=== PATIENT | female | born 1965 ===

== ENCOUNTER 2025-02-20 13:15 | Outpatient (AMB) | payer OTHER, SELFPAY ==
--- NOTE | 2025-02-20 13:14 | A.OFFPC_ITS ---
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: No Accompanied by: Self / Same As Patient Allergies NSAIDS (Non-Steroidal Anti-Inflamma Allergy (Mild, Verified 02/20/25 13:41) Anaphylaxis linaclotide (From Linzess) Adverse Reaction (Verified 02/20/25 13:41) Diarrhea Medication List - Last Reconciled 02/20/25 by Rocio Trujillo PA-C albuterol-budesonide 90-80 mcg/actuation 2 inhalations inhalation DAILY PRN atorvastatin (Lipitor) 10 mg PO BEDTIME shnxkmtcyp-nrkzfzad-dcggwjpncz 160-9-4.8 mcg/actuation (Breztri Aerosphere) 2 inhalations inhalation BID cetirizine (Zyrtec) 10 mg PO DAILY PRN cyclobenzaprine 10 mg PO BEDTIME diclofenac sodium 1% 2 grams topical QID duloxetine 60 mg PO DAILY ergocalciferol (vitamin D2) 1,250 mcg PO QWEEK esomeprazole magnesium (Nexium) 20 mg PO DAILY fluticasone propionate 44 mcg/actuation 2 puffs inhalation BID meloxicam 15 mg PO DAILY nitroglycerin 0.4 mg sublingual Q5M PRN sumatriptan succinate take 1 tab at onset of headache; if no relief may repeat 1 tab after at least 2 hrs; max = 4 tabs/24 hr PO Tobacco use date assessed: 02/20/25 Dental Screening Dental Screen Date: 02/20/25 Did you have a dental visit in the last 12 months?: Yes Did you have a dental problem in the last 6 months where you did not have access to dental care?: No Was dental information given to patient?: Patient has dentist HPI HPI Comments History of Present Illness Details History of Present Illness The patient is a 59 year old individual presenting for a new patient establish [facility] visit. The patient reports a past medical history of hypertension and hyperlipidemia/hypercholesterolemia, though is not currently taking any medications for these conditions. Other reported conditions include GERD, depression, anxiety, asthma, allergic rhinitis, anemia, vitamin B12 deficiency, vitamin-D deficiency, osteoarthritis, migraine headaches, intermittent chest pain, bowel disease, a history of UTIs, and sinusitis. The patient has a significant surgical history, including a lumbar fusion performed in [place]. Associated back conditions include lumbar spondylosis, a prolapsed lumbar intervertebral disc, and spinal stenosis. The patient also reports a history of left hip issues and an unspecified uterine condition. The patient reports she was on multiple medications when she was in [place] although she has not been on any medications since she has arrived and move back to [place]. The medications include Nexium 20 mg daily, vitamin-D 2 1250 mcg weekly, duloxetine 50 mg daily, 3 different inhalers for her asthma, nitroglycerin for under her tongue if she has any chest pain, atorvastatin 10 mg at bedtime, sumatriptan 50 mg daily for her migraine headaches, meloxicam for her chronic back pain and muscle aches, fluconazole nasal spray, cyclobenzaprine muscle relaxant for chronic back pain, diclofenac 1% gel, and Zyrtec. She reports she has not had any of these medications and will need a refill on all of these medications. She was on sertraline and pregabalin along with tramadol although is no longer on these medications and is not requesting a refill on these medications at this time. The patient has a family history of premature coronary artery disease. The patient has an upcoming appointment with a therapist and will also see a psychiatrist. Patient would like a referral to neurologist for her history of transient cerebral ischemia in September of 2014 and for her migraine headaches and her vertigo. Patient would like a referral for a mammogram and a bone scan. Patient would also like a referral for a colonoscopy. Patient would like a referral for cervical cancer screening at [facility]. She reports for her chronic back pain she would like a referral for Orthopedics as her prior surgeon/orthopedic doctor unfortunately . Patient would also like physical therapy referral for her vertigo. Social History - The patient recently relocated from [facility]. - The patient has an appointment sched ed with a therapist and also plans to see a psychiatrist. COUNTS INCLUDE 234 BEDS AT THE [facility] Medical History (Updated 02/20/25 @ 16:17 by Rocio Trujillo PA-C) Healthcare maintenance Menopause Transient cerebral ischemia Lumbar post-laminectomy syndrome Chronic constipation Chronic hip pain, bilateral Vitamin D deficiency Vitamin B12 deficiency Anemia Allergic rhinitis Uterine leiomyoma Osteoarthritis History of sinusitis Hyperlipidemia Vertigo Anxiety and depression History of chronic back pain Spinal stenosis Asthma GERD (gastroesophageal reflux disease) Annual physical exam BPPV (benign paroxysmal positional vertigo) Left thyroid nodule Dysuria History of spinal stenosis Transient ischemic attack Migraine headache Cervical cancer screening Surgical History (Updated 02/20/25 @ 16:14 by Rocio Trujillo PA-C) History of tubal ligation History of appendectomy History of laminectomy Family History Mother No problems noted. Father Diabetes Heart problem Social History Housing: Apartment Alcohol intake: current Alcohol intake frequency: does not drink Patient Tobacco Use Status: Never used Tobacco service: No Current occupational status: disabled Cognitive needs: No Hearing needs: No Vision needs: Yes (rx glasses) Questionnaire PHQ-9 Over the last 2 weeks, how often have you been bothered by any of the following problems? 1. Little interest or pleasure in doing things: not at all 2. Feeling down, depressed, or hopeless: not at all 3. Trouble falling or staying asleep, or sleeping too much: not at all 4. Feeling tired or having little energy: not at all 5. Poor appetite or overeating: not at all 6. Feeling bad about yourself - or that you are a failure or have let yourself or your family down: not at all 7. Trouble concentrating on things, such as reading the newspaper or watching television: not at all 8. Moving or speaking so slowly that other people could have noticed. Or the opposite - being so fidgety or restless that you have been moving around a lot more than usual: not at all 9. Thoughts that you would be better off or of hurting yourself in some way: not at all Total score: 0 Depression Screening Interpretation: Negative Depression Screening Done: Yes 49219 - PHQ-9 Billing: Yes Source: Developed by Drs. Von Canales, Jennyfer Maldonado, Demetrio Murillo and colleagues, with an educational netta from [employer]. Thrive Questionnaire Date Thrive assessed: 02/20/25 I am a: Patient What is your living situation today?: I have a steady place to live Within the past 12 months, did the food you bought not last and you didn't have the money to get more?: Never true Within the past 12 months, did you worry whether your food would run out before you got money to buy more?: Never true Do you have trouble paying for medicines?: No Do you have trouble getting transportation to medical appointments?: No Do you have trouble paying your heating and electricity bill?: No Do you have trouble taking care of your child, family member or friend?: No Do you have trouble with day-to-day activities such as bathing, preparing meals, shopping, managing finances, etc.?: No Are you currently unemployed and looking for a job?: No Are you interested in more education?: No Please select the resources that you would like help with: None THRIVE Score: 0 AUDIT C Alcohol Use Questionnaire (AUDIT-C) 1. How often do you have a drink containing alcohol?: Never 3. How often do you have six or more drinks on one occasion?: Never Total Score: 0 Score Reviewed/Action Taken: No MICHELE-7 AMB Questionnaire MICHELE-7 Date MICHELE - 7 assessed: 02/20/25 Feeling nervous, anxious, or on edge: 0 = Not at all Not being able to stop or control worryin = Not at all Worrying too much about different things: 0 = Not at all Trouble relaxin = Not at all Being so restless that it is hard to sit still: 0 = Not at all Becoming easily annoyed or irritable: 0 = Not at all Feeling afraid as if something awful might happen: 0 = Not at all Total MICHELE-7 score (0-4 normal; 5-9 mild; 10-14 moderate; 15-21 severe): 0 Source: Developed by Drs. Von Canales, Jennyfer Maldonado, Demetrio Murillo and colleagues, with an educational netta from [employer]. MICHELE-7 Assessment Billing MICHELE-7 Assessment Tool: MICHELE-7 Assessment 62060 Review of Systems Narrative Review of Systems - Eyes: Reports sensation of a foreign body in the eye. - Psychiatric: Denies feeling anxious. Const All systems reviewed & are unremarkable except as noted in HPI and below Physical exam (Primary Care) Vital Signs: Last Vital Signs Temp 97.6 F 02/20/25 13:18 Pulse 90 02/20/25 13:18 Resp 14 02/20/25 13:18 BP 103/58 L 02/20/25 13:18 Pulse Ox 98 02/20/25 13:18 Oxygen Delivery Method Room Air 02/20/25 13:18 Care Plan Goal for BP management: <140/90 at Goal BMI result Body Mass Index 29.6 BMI Assessment/Plan discussion: High BMI High, discussed plan: lifestyle, weight reduction, dietary, physical activity, alcohol moderation and other Tobacco/Smoking Status: Tobacco use Status Tobacco use date assessed 02/20/25 02/20/25 13:17 Patient Tobacco Use Status Never used Tobacco 02/20/25 13:26 PHQ-9: PHQ-9 Score PHQ-9: Total score 0 02/20/25 14:25 Depression Screening Interpretation: Negative Thrive Assessment: Date of Thrive Assessment Date Thrive assessed 02/20/25 02/20/25 13:17 Narrative Physical Exam Appearance: Alert. Oriented X3. No acute distress. Head: Normal external exam. Normocephalic. Atraumatic. Eyes: Pupils are equal, round, and reactive to light. Extraocular movements intact. Conjunctiva and sclera normal. Eyelids normal. Ears: External auditory canal normal. Tympanic membranes normal. Throat: Pharynx normal. Uvula midline. Moist mucous membranes. Neck: Normal inspection. Neck supple. Full range of motion. No adenopathy. Left thyroid nodule noted. No meningeal signs. No neck mass noted. Cardiovascular: Normal heart rate and rhythm. Heart sound normal. No murmurs noted. Pulses normal throughout. Respiratory: No respiratory distress. Painless inspiration. Breath sounds normal. No wheezes/rales/rhonchi noted. Chest nontender. No accessory muscle usage noted or decreased air movement noted. Abdomen: Soft and nontender. Bowel sounds normal in all 4 quadrants. No distention noted. No organomegaly noted. No visible injury noted. Back: No costovertebral angle tenderness. Full range of motion noted. Skin: Skin warm and dry. Normal skin color. Normal skin turgor. No rashes/lesions/lacerations noted. Extremities: No lower extremity edema. Extremities exhibit normal range of motion. Extremities nontender. Neuro: Oriented X 3. No motor deficit. No sensory deficit. Reflexes normal. Coding Level of Care Code New Pt Level 4 (23077) New Pt Prev Care 40-64y(71091) Diagnoses Annual physical exam Z00.00 GERD (gastroesophageal reflux disease) K21.9 Asthma J45.909 Spinal stenosis M48.00 History of chronic back pain Z87.39 Anxiety and depression F41.9; F32.A Vertigo R42 Hyperlipidemia E78.5 History of sinusitis Z87.09 Osteoarthritis M19.90 Uterine leiomyoma D25.9 Allergic rhinitis J30.9 Anemia D64.9 Vitamin B12 deficiency E53.8 Vitamin D deficiency E55.9 Chronic hip pain, bilateral M25.551; M25.552; G89.29 Chronic constipation K59.09 Lumbar post-laminectomy syndrome M96.1 Transient cerebral ischemia G45.9 Menopause Z78.0 Left thyroid nodule E04.1 Healthcare maintenance Z00.00 Additional Codes PHQ-9 - 08047 - PHQ-9 Billing: Yes ([id number]) MICHELE-7 Assessment Billing - MICHELE-7 Assessment Tool: MICHELE-7 Assessment 12266 ([id number]) Time Spent (min) 70 Assessment & Plan Assessment & Plan (1) Annual physical exam: Code(s): Z00.00 - Encounter for general adult medical examination without abnormal findings Category: Medical Plan: This new patient visit will be conducted as a physical. Comprehensive blood work will be ordered, including a CBC, CMP, inflammatory markers, magnesium, cholesterol panel, vitamin B12, folate, and thyroid studies. A urinalysis will be performed to check for protein, blood, or glucose. A diabetes screen and vitamin D level check will also be ordered. Referrals will be placed for a mammogram, bone scan, and colonoscopy. (2) GERD (gastroesophageal reflux disease): Code(s): K21.9 - Gastro-esophageal reflux disease without esophagitis Category: Medical Plan: Patient will be referred to gastroenterology. Will refill patient's Nexium. Condition is chronic and stable continue to monitor. (3) Asthma: Code(s): J45.909 - Unspecified asthma, uncomplicated Category: Medical Plan: Will refill all patient's prescriptions and referred to pulmonology for further evaluation and management for her asthma. (4) Spinal stenosis: Code(s): M48.00 - Spinal stenosis, site unspecified Category: Medical Plan: Will refill the patient's meloxicam, Flexeril and topical gel along with refer to orthopedic for further evaluation and management. Condition is chronic and stable continue to monitor (5) History of chronic back pain: Code(s): Z87.39 - Personal history of other diseases of the musculoskeletal system and connective tissue Category: Medical Plan: Will refill the patient's meloxicam, Flexeril and topical gel along with refer to orthopedic for further evaluation and management. Condition is chronic and stable continue to monitor (6) Anxiety and depression: Code(s): F41.9 - Anxiety disorder, unspecified; F32.A - Depression, unspecified Category: Medical Plan: Patient to continue seeing Psychiatry and therapist. Condition is chronic and stable continue to monitor. (7) Vertigo: Code(s): R42 - Dizziness and giddiness Category: Medical Plan: Will start the patient on meclizine. Will refer to Physical therapy and Neurology. condition is chronic and stable will continue to monitor. (8) Hyperlipidemia: Code(s): E78.5 - Hyperlipidemia, unspecified Category: Medical Plan: Will restart the patient on Lipitor 10 mg at bedtime. Condition is chronic and stable continue to monitor. (9) History of sinusitis: Code(s): Z87.09 - Personal history of other diseases of the respiratory system Category: Medical Plan: Condition is chronic and stable continue to monitor. (10) Osteoarthritis: Code(s): M19.90 - Unspecified osteoarthritis, unspecified site Category: Medical Plan: Will restart the patient on meloxicam, Flexeril and topical gel. Condition is chronic and stable continue to monitor. (11) Uterine leiomyoma: Code(s): D25.9 - Leiomyoma of uterus, unspecified Category: Medical Plan: Will refer to [facility] for further evaluation management. Condition is chronic and stable will continue to monitor (12) Allergic rhinitis: Code(s): J30.9 - Allergic rhinitis, unspecified Category: Medical Plan: Condition is chronic and stable continue to monitor. (13) Anemia: Code(s): D64.9 - Anemia, unspecified Category: Medical Plan: Will order fasting labs. Condition is chronic and stable continue to monitor. (14) Vitamin B12 deficiency: Code(s): E53.8 - Deficiency of other specified B group vitamins Category: Medical Plan: Fasting labs ordered. Condition is chronic and stable continue to monitor (15) Vitamin D deficiency: Code(s): E55.9 - Vitamin D deficiency, unspecified Category: Medical Plan: Fasting labs ordered to evaluate. Condition is chronic and stable continue to monitor and patient will be restarted on vitamin-D supplement weekly. (16) Chronic hip pain, bilateral: Code(s): M25.551 - Pain in right hip; M25.552 - Pain in left hip; G89.29 - Other chronic pain Category: Medical Plan: Will refer to orthopedic. Will start the patient on meloxicam Flexeril topical gel. Condition is chronic and stable continue to monitor. (17) Chronic constipation: Code(s): K59.09 - Other constipation Category: Medical Plan: Will refer to GI. Condition is chronic and stable continue to monitor. (18) Lumbar post-laminectomy syndrome: Code(s): M96.1 - Postlaminectomy syndrome, not elsewhere classified Category: Medical Plan: Will refer to orthopedic. Condition is chronic and stable continue to monitor (19) Transient cerebral ischemia: Comment: 09/2014 Code(s): G45.9 - Transient cerebral ischemic attack, unspecified Category: Medical Plan: Denies any acute complaints at this time. No focal deficits are noted. Patient moving all extremities alert oriented x3. Will refer to Neurology due to prior history. Condition is chronic and stable continue to monitor (20) Menopause: Code(s): Z78.0 - Asymptomatic menopausal state Category: Medical Plan: Will refer to pill packer for further evaluation management. Condition is chronic and stable (21) Left thyroid nodule: Code(s): E04.1 - Nontoxic single thyroid nodule Category: Medical Plan: Will refer for ultrasound of thyroid for left thyroid nodule. Condition is new will continue to monitor (22) Healthcare maintenance: Code(s): Z00.00 - Encounter for general adult medical examination without abnormal findings Category: Medical Plan: Patient will have fasting labs. She will be referred to [facility] for cervical cancer screening. She will be referred to Neurology for her migraine headaches, vertigo and her history of her TIA. She will be referred for her asthma to pulmonology. She will be referred to physical therapy for her vertigo. She will be referred for mammogram and a bone scan to evaluate for osteoporosis and breast cancer. She will be referred to [facility] for chronic GI discomfort and colon cancer screening. Patient to continue following up with therapist and psychiatrist as recommended. Plan Plan Patient was informed and verbally consented to the use of an ambient scribe for clinic note documentation during this visit. 1. New Patient Establishment And Health Maintenance This new patient visit will be conducted as a physical. Comprehensive blood work will be ordered, including a CBC, CMP, inflammatory markers, magnesium, cholesterol panel, vitamin B12, folate, and thyroid studies. A urinalysis will be performed to check for protein, blood, or glucose. A diabetes screen and vitamin D level check will also be ordered. Referrals will be placed for a mammogram, bone scan, and colonoscopy. 2. Chronic Back Pain And Status Post Lumbar Fusion Medical records from the patient's lumbar fusion in [place] will be requested for review. A referral will be sent for a walker to assist with mobility. 3. Mental Health The patient has an upcoming appointment with a therapist on 03/09/23 and will be scheduled to see a psychiatrist. Discussion Notes I have converted this new patient appointment into a physical exam. I reviewed the patient's extensive past medical history and medication list from the patient's personal records. I discussed the plan to order comprehensive baseline lab work, including a CBC, CMP, lipids, thyroid function, and vitamin levels. I also explained that I will be placing referrals for overdue health maintenance screenings, including a mammogram, bone scan, and colonoscopy. We discussed the patient's chronic back issues, and I will place a referral for a walker. Orders: Orders C Reactive Protein Today Z00.00 - Encounter for general adult medical examination without abnormal findings Complete Blood Count Auto Diff Today Z00.00 - Encounter for general adult medical examination without abnormal findings Comprehensive [place]. Panel Fast Today Z00.00 - Encounter for general adult medical examination without abnormal findings Erythrocyte Sedimentation Rate Today Z00.00 - Encounter for general adult medical examination without abnormal findings Magnesium Today Z00.00 - Encounter for general adult medical examination without abnormal findings XR DEXA axial skeleton Today M81.0 - Age-related osteoporosis without current pathological fracture Bacterial Vaginosis Panel Today R30.0 - Dysuria US thyroid Today E04.1 - Nontoxic single thyroid nodule PT Evaluation and Treatment Today H81.10 - Benign paroxysmal vertigo, unspecified ear Lipid Panel Today Z00.00 - Encounter for general adult medical examination without abnormal findings UA CC w/rflx Micro + Cult Today Z00.00 - Encounter for general adult medical examination without abnormal findings Vitamin B12 and Folate Today Z00.00 - Encounter for general adult medical examination without abnormal findings Vitamin D 25-OH Total Today Z00.00 - Encounter for general adult medical examination without abnormal findings TSH reflex Free T4 Today Z00.00 - Encounter for general adult medical examination without abnormal findings Hemoglobin A1c Today Z00.00 - Encounter for general adult medical examination without abnormal findings MM screening mammo BI Today Z12.31 - Encounter for screening mammogram for malignant neoplasm of breast Referrals Pulmonology Referral J45.909 - Unspecified asthma, uncomplicated Gastroenterology Referral Z12.11 - Encounter for screening for malignant neoplasm of colon [employer]ATOR Referral Z12.4 - Encounter for screening for malignant neoplasm of cervix Neurology Referral G43.909 - Migraine, unspecified, not intractable, without status migrainosus, G45.9 - Transient cerebral ischemic attack, unspecified, H81.10 - Benign paroxysmal vertigo, unspecified ear Orthopedics Referral Z87.39 - Personal history of other diseases of the musculoskeletal system and connective tissue, Z98.890 - Other specified postprocedural states Medications: New albuterol-budesonide 90-80 mcg/actuation 2 inhalations inhalation DAILY PRN 5.9 grams 3RF shortness of breath atorvastatin (Lipitor) 10 mg PO BEDTIME 90 tabs 3RF cetirizine (Zyrtec) 10 mg PO DAILY PRN 90 caps 3RF allergy symptoms diclofenac sodium 1% apply to single elbow, wrist or hand; for hand includes palm/fingers/back of hand 2 grams topical QID 100 grams 3RF duloxetine 60 mg PO DAILY 90 caps 3RF esomeprazole magnesium (Nexium) 20 mg PO DAILY 90 caps 3RF fluticasone propionate 44 mcg/actuation administer with spacer 2 puffs inhalation BID 10.6 grams 3RF sumatriptan succinate take 1 tab at onset of headache; if no relief may repeat 1 tab after at least 2 hrs; max = 4 tabs/24 hr PO 90 tabs 3RF kvtdyinbuv-fyciuqog-bykmqrfmzf 160-9-4.8 mcg/actuation (Breztri Aerosphere) 2 inhalations inhalation BID 5.9 grams 3RF cyclobenzaprine 10 mg PO BEDTIME 90 tabs 3RF ergocalciferol (vitamin D2) 1,250 mcg PO QWEEK 13 caps 3RF 90 days meloxicam 15 mg PO DAILY 90 tabs 3RF nitroglycerin do not exceed 3 doses per episode 0.4 mg sublingual Q5M PRN 90 tabs 3RF chest pain meclizine (Antivert) 50 mg PO BID PRN 90 tabs 3RF dizziness Patient Instructions: Patient Instructions - Please go to the laboratory to have blood drawn for the tests that were o rdered today. - We will be sending referrals for you to schedule a mammogram, a bone scan, and a colonoscopy. - We will also provide a referral for a walker. - Remember your upcoming appointment with the therapist on March 09, 2023. - Continue taking atorvastatin and cyclobenzaprine as you have been. - We will try to obtain your medical records from your previous doctor in [place].
[2025-02-20 13:18] VITALS: BP 103/58; PULSE 90; RESP 14; TEMP 36.4; O2SAT 98; BMI 29.6
== END 2025-02-20 14:09 | disposition home or self-care (01) ==
LOC: HO.HMCSH 13:15
PROVIDERS: PCP Physician Assistant Medical; Visit Provider Physician Assistant Medical
DX: Z00.00 Encounter for general adult medical examination without abnormal findings (principal); K21.9 Gastro-esophageal reflux disease without esophagitis; J45.909 Unspecified asthma, uncomplicated; M48.00 Spinal stenosis, site unspecified; Z87.39 Personal history of other diseases of the musculoskeletal system and connective tissue; F41.9 Anxiety disorder, unspecified; F32.A Depression, unspecified; R42 Dizziness and giddiness; E78.5 Hyperlipidemia, unspecified; Z87.09 Personal history of other diseases of the respiratory system; M19.90 Unspecified osteoarthritis, unspecified site; D25.9 Leiomyoma of uterus, unspecified; J30.9 Allergic rhinitis, unspecified; D64.9 Anemia, unspecified; E53.8 Deficiency of other specified B group vitamins; E55.9 Vitamin D deficiency, unspecified; M25.551 Pain in right hip; M25.552 Pain in left hip; G89.29 Other chronic pain; K59.09 Other constipation; M96.1 Postlaminectomy syndrome, not elsewhere classified; G45.9 Transient cerebral ischemic attack, unspecified; Z78.0 Asymptomatic menopausal state; E04.1 Nontoxic single thyroid nodule

== ENCOUNTER 2025-02-20 13:15 | Outpatient (REF) | payer OTHER, SELFPAY ==
[2025-02-20 19:57] LABS: Appearance Urine Clear; Glucose Urine UA Negative (Negative); PH 5.0 (5.0-9.0); Specific Gravity - Urine >= 1.030 (1.005-1.025)
== END 2025-02-20 13:16 | disposition home or self-care (01) ==
LOC: HO.LAB 13:15
PROVIDERS: PCP Physician Assistant Medical; Visit Provider Physician Assistant Medical
DX: Z00.00 Encounter for general adult medical examination without abnormal findings (principal); R30.0 Dysuria; K21.9 Gastro-esophageal reflux disease without esophagitis; J45.909 Unspecified asthma, uncomplicated; M48.00 Spinal stenosis, site unspecified; Z87.39 Personal history of other diseases of the musculoskeletal system and connective tissue; F41.9 Anxiety disorder, unspecified; F32.A Depression, unspecified; R42 Dizziness and giddiness; E78.5 Hyperlipidemia, unspecified; M19.90 Unspecified osteoarthritis, unspecified site; D25.9 Leiomyoma of uterus, unspecified; D64.9 Anemia, unspecified; E53.8 Deficiency of other specified B group vitamins; E55.9 Vitamin D deficiency, unspecified; M25.551 Pain in right hip; M25.552 Pain in left hip; G89.29 Other chronic pain; K59.09 Other constipation; M96.1 Postlaminectomy syndrome, not elsewhere classified; G45.9 Transient cerebral ischemic attack, unspecified; E04.1 Nontoxic single thyroid nodule; Z78.0 Asymptomatic menopausal state; Z87.09 Personal history of other diseases of the respiratory system
CPT/HCPCS: 81003; 81515; 96127; 99202; 99386